=== PATIENT | female | born 1990 ===

== ENCOUNTER 2019-03-24 22:35 | Inpatient (IN) | payer OTHER ==
[~2019-03-24] VITALS: Ht 165.1 cm; Wt 140.0 kg
[2019-03-24] MEDS ORDERED: PRENATABS RX T1 EACH PO (22:41)
== END 2019-03-27 19:10 | disposition home or self-care (01) | DRG 768 ==
LOC: LDR 22:35 → OB/GYN 03-25 18:29 → O/R 03-28 12:00
PROVIDERS: ADMIT Specialist
PROC: 10E0XZZ Delivery of Products of Conception, External Approach (ICD-10-PCS; principal; 2019-03-25)
PROC: 0UQM0ZZ Repair Vulva, Open Approach (ICD-10-PCS; 2019-03-25)
PROC: 4A0HXFZ Measurement of Products of Conception, Cardiac Rhythm, External Approach (ICD-10-PCS; 2019-03-25)
DX: O71.82 Other specified trauma to perineum and vulva (principal); Z37.0 Single live birth; Z3A.39 39 weeks gestation of pregnancy